=== PATIENT | male | born 1975 | race Caucasian/White ===

== ENCOUNTER 2018-10-16 19:11 | Emergency (ER) | payer MEDICAID ==
[~2018-10-16] VITALS: Ht 177.8 cm; Wt 83.9 kg
[~2018-10-16 19:11] MED LIST: ATIVAN; ATIVAN1 MG PO; AUGMENTIN 875 M1 TA1 PO; CEPHALEXIN500 M1 PO; CYCLOBENZAPRINE5 M3 PO; FLAGYL500 MG PO; LOMOTIL 0.025 M1 TA1 PO; MEDROL DOSEPAK4 MG PO; MOTRIN 800 MG E4 TAB PO; MOTRIN600 MG PO; MOTRIN800 MG PO; Motrin,Rufen800 MG PO; PAXIL10 MG PO; PAXIL30 MG PO; TYLENOL325 M2; VIBRAMYCIN100 MG PO; VICODIN 5/500 505 MG PO; Vicodin 5/500 505 MG PO; ZANTAC150 MG PO
[2018-10-16] MEDS ORDERED: Motrin,Rufen800 MG PO (19:58)
[2018-10-16] MEDS ORDERED: CLINDAMYCIN HC300 MG PO (19:58)
== END 2018-10-16 20:20 | disposition home or self-care (01) ==
LOC: ED 19:11
DX: K04.7 Periapical abscess without sinus (principal); K02.9 Dental caries, unspecified; Z79.899 Other long term (current) drug therapy

== ENCOUNTER 2019-04-05 22:16 | Emergency (ER) | payer OTHER ==
[~2019-04-05] VITALS: Ht 177.8 cm; Wt 81.6 kg
[~2019-04-05 22:16] MED LIST changes: +CLINDAMYCIN HC300 MG PO
== END 2019-04-05 23:08 | disposition left against medical advice (07) ==
LOC: ED 22:16
DX: K08.89 Other specified disorders of teeth and supporting structures (principal); Z53.21 Procedure and treatment not carried out due to patient leaving prior to being seen by health care provider

== ENCOUNTER 2021-04-01 16:08 | Emergency (ER) | payer OTHER ==
[~2021-04-01] VITALS: Ht 177.8 cm; Wt 88.5 kg
[2021-04-01] MEDS ORDERED: PAXIL40 M1 PO (16:16)
[2021-04-01 17:03] LABS: BASO % 0.3 % (0.0-1.0); EOS % 0.1 % (1.0-4.0); HEMATOCRIT 44.7 % (42.0-52.0); LYMPH # 1.1 10*3/uL (1.3-4.4); LYMPH % 7.8 % (27.0-41.0); MEAN CELL VOLUME 81.9 fl (80.0-94.0); MEAN CORPUSCULAR HGB 28.8 pg (27.0-31.0); MEAN CORPUSCULAR HGB CONC 35.1 g/dl (33.0-37.0); MEAN PLATELET VOLUME 8.7 fl (9.6-12.3); MONO # 0.8 10*3/uL (0.1-1.0); MONO % 5.3 % (3.0-9.0); NEUT # 12.5 10*3/uL (2.3-7.9); NEUT % 86.1 % (47.0-73.0); PLATELET COUNT AUTOMATED 324 10*3/uL (130-400); RED BLOOD COUNT 5.46 10*6/uL (4.50-5.90); RED CELL DISTRI WIDTH 12.3 % (0-14.5); WHITE BLOOD COUNT 14.5 10*3/uL (4.8-10.8)
[2021-04-01 17:21] LABS: ALBUMIN 3.9 gm/dl (3.1-4.5); ALKALINE PHOSPHATASE 145 U/L (45-117); BUN 11 mg/dl (7-24); CHLORIDE 107 mmol/L (98-107); CREATININE 0.88 mg/dL (0.70-1.30); LIPASE 45 U/L (73-393); POTASSIUM 4.1 mmol/L (3.5-5.1); SGOT/AST 16 IU/L (3-35); SGPT/ALT 23 U/L (12-78); SODIUM 138 mmol/L (136-145); TOTAL PROTEIN 7.5 gm/dL (6.4-8.2)
[2021-04-01] MEDS ORDERED: AUGMENTIN 875875 MG PO (19:48)
== END 2021-04-01 20:00 | disposition home or self-care (01) ==
LOC: ED 16:08
PROVIDERS: Emergency Medicine
DX: K57.32 Diverticulitis of large intestine without perforation or abscess without bleeding (principal); D72.829 Elevated white blood cell count, unspecified; Z79.899 Other long term (current) drug therapy